=== PATIENT | male | born 1965 ===

== ENCOUNTER 2019-02-10 14:33 | Emergency (ER) | payer OTHER ==
[~2019-02-10] VITALS: Ht 185.4 cm; Wt 102.0 kg
[2019-02-10 14:56] VITALS: BP 150/90
--- NOTE | 2019-02-10 15:18 | NUR ---
IN XRAY, DELAY IN MEDICATING
[2019-02-10] MEDS ORDERED: KETOROLAC 30 MG/1 ML IM ONE (15:30)
[2019-02-10] MEDS ORDERED: CYCLOBENZAPRINE 10 MG TABLET PO ONE (15:30)
[2019-02-10] MEDS ORDERED: KETOROLAC 30 MG/1 ML ONE (15:42)
[2019-02-10] MEDS ORDERED: CYCLOBENZAPRINE 10 MG TABLET ONE (15:42)
--- NOTE | 2019-02-10 16:11 | NUR ---
DC EDUCATION PROVIDED, PT DEMONSTRATES UNDERSTANDING. PT AMBULATED STEADILY TO DC WITH RN. FRIEND TO TRANSPORT PT HOME.
== END 2019-02-10 16:13 | disposition home or self-care (01) ==
LOC: ED 16:00
DX: G89.29 Other chronic pain (principal); G89.11 Acute pain due to trauma; M54.41 Lumbago with sciatica, right side; F17.210 Nicotine dependence, cigarettes, uncomplicated; X50.0XXA Overexertion from strenuous movement or load, initial encounter; Y93.89 Activity, other specified; Y92.69 Other specified industrial and construction area as the place of occurrence of the external cause; Y99.8 Other external cause status
CPT/HCPCS: 72110; 96372; 99283; J1885